=== PATIENT | male | born 1995 | race Caucasian/White ===

== ENCOUNTER → 2016-05-27 | Outpatient (CLI) | payer BC ==
[~2016-05-27] MED LIST: TRAMADOL 50MG T50 MG PO
--- NOTE | 2016-05-27 10:26 | RADIOLOGY REPORT PS360 ---
HAND-LT-3 VIEWS HISTORY: Posttraumatic pain, pain and swelling LT HAND INJURY COMPARISON: None FINDINGS: Comminuted nondisplaced mildly active fracture involves the distal aspect of the third metacarpal at the diaphyseal metaphyseal junction. There is mild anterior angulation of the distal fracture fragment. No other anomalies evident. IMPRESSION: Comminuted nondisplaced fracture distal aspect of third metacarpal
== END ==
LOC: RAD 09:52
DX: S69.90XA Unspecified injury of unspecified wrist, hand and finger(s), initial encounter (principal)